=== PATIENT | male | born 1945 | race Caucasian/White ===

== ENCOUNTER 2020-01-21 12:33 | Emergency (ER) | payer MEDICARE, BC ==
[~2020-01-21] VITALS: Ht 182.9 cm; Wt 108.0 kg
[2020-01-21 12:36] VITALS: BP 132/74
[2020-01-21] MEDS ORDERED: ALBU8.5H8 INH (13:03)
[2020-01-21] MEDS ORDERED: AZIT250T29 PO (13:03)
== END 2020-01-21 13:43 | disposition home or self-care (01) ==
LOC: ER 12:33
DX: J20.9 Acute bronchitis, unspecified (principal); Z86.718 Personal history of other venous thrombosis and embolism; Z98.890 Other specified postprocedural states; Z88.6 Allergy status to analgesic agent; Z88.8 Allergy status to other drugs, medicaments and biological substances
CPT/HCPCS: 99284

== ENCOUNTER 2021-11-06 15:03 | Emergency (ER) | payer MEDICARE, BC ==
[~2021-11-06] VITALS: Ht 182.9 cm; Wt 85.6 kg
[~2021-11-06 15:03] MED LIST: ALBU8.5H17 INH
--- NOTE | 2021-11-06 15:20 | NUR ---
PATIENT EVALUATED BY PA IN TRIAGE.
--- NOTE | 2021-11-06 15:28 | NUR ---
PATIENT IS WELL ORIENTED, NO DISTRESS. TAKEN BY datapine FOR CT.
[2021-11-06 15:52] LABS: BASOPHILS % (AUTO) 0.6 % (0-1); EOSINOPHILS # (AUTO) 0.2 X10'3 (0-0.9); EOSINOPHILS % (AUTO) 2.8 % (0-6); HEMATOCRIT 39.7 % (42.0-52.0); HEMOGLOBIN 13.2 g/dl (14.0-17.9); LYMPHOCYTES # (AUTO) 1.7 X10'3 (1.1-4.8); LYMPHOCYTES % (AUTO) 21.9 % (21-51); MEAN CORPUSCULAR HEMOGLOBIN 30.7 PG (27.0-31.0); MEAN CORPUSCULAR HGB CONC 33.2 g/dL (33.0-36.5); MEAN CORPUSCULAR VOLUME 92.4 FL (78-98); MEAN PLATELET VOLUME 7.8 FL (7.4-10.4); MONOCYTES # (AUTO) 0.7 X10'3 (0-0.9); MONOCYTES % (AUTO) 8.8 % (2-12); NEUTROPHILS # (AUTO) 5.1 X10'3 (1.8-7.7); NEUTROPHILS % (AUTO) 65.9 % (42-75); PLATELET COUNT 231 X10'3 (140-440); RED CELL DISTRIBUTION WIDTH 15.2 % (11.5-14.5); WHITE BLOOD COUNT 7.8 X10'3 (4.5-11.0)
[2021-11-06 15:57] LABS: APTT 30 SECONDS (22-32)
[2021-11-06 15:58] LABS: ALANINE AMINOTRANSFERASE 21 U/L (12-78); ALBUMIN 4.1 G/DL (3.4-5.0); ALBUMIN/GLOBULIN RATIO 1.3 (1.1-1.5); ALKALINE PHOSPHATASE 91 IU/L (46-116); ANION GAP 8 (8-16); ASPARTATE AMINO TRANSFERASE 20 U/L (10-37); BILIRUBIN,TOTAL 0.6 MG/DL (0.1-1.0); BLOOD UREA NITROGEN 17 MG/DL (7-18); BUN/CREATININE RATIO 14.9 (5.4-32.0); CALCIUM 8.9 MG/DL (8.5-10.1); CHLORIDE 104 MMOL/L (99-107); CREATININE 1.14 MG/DL (0.60-1.10); GLUCOSE 103 MG/DL (70-104); POTASSIUM 4.5 MMOL/L (3.5-5.1); SODIUM 140 MMOL/L (135-145); TOTAL CARBON DIOXIDE 28.1 MMOL/L (24-32); TOTAL PROTEIN 7.2 G/DL (6.4-8.2); eGFR 63 ML/MIN
[2021-11-06] MEDS ORDERED: LIDOcaine 1% 30ml preserv. free vial IJ ONE (16:20)
[2021-11-06] MEDS ORDERED: TETanus/Pertussis (Acell)/Diphther VAC/PF (Tdap-Adult) 0.5ml syringe IMVAC ONE (17:05)
[2021-11-06] MEDS ORDERED: bacitracin 15gm ointment TP ONE (17:05)
[2021-11-06 17:40] VITALS: BP 147/67
== END 2021-11-06 17:43 | disposition home or self-care (01) ==
LOC: ER 15:04
DX: S06.0X0A Concussion without loss of consciousness, initial encounter (principal); S50.11XA Contusion of right forearm, initial encounter; S00.03XA Contusion of scalp, initial encounter; S00.81XA Abrasion of other part of head, initial encounter; Z86.718 Personal history of other venous thrombosis and embolism; Z98.890 Other specified postprocedural states; Z95.5 Presence of coronary angioplasty implant and graft; Z91.041 Radiographic dye allergy status; Z88.8 Allergy status to other drugs, medicaments and biological substances; Z79.899 Other long term (current) drug therapy; W22.8XXA Striking against or struck by other objects, initial encounter; Y93.89 Activity, other specified; Y92.89 Other specified places as the place of occurrence of the external cause; Y99.8 Other external cause status
CPT/HCPCS: 26770; 36415; 70450; 72125; 73130; 80053; 85025; 85610; 85730; 90471; 90715; 99284

== ENCOUNTER 2022-06-02 14:11 | Outpatient (CLI) | payer MEDICARE, BC | END 2022-06-02 23:59 | disposition home or self-care (01) | LOC: RAD 14:11 | PROVIDERS: ATTEND Specialist | DX: R13.14 Dysphagia, pharyngoesophageal phase (principal); R13.11 Dysphagia, oral phase; R49.0 Dysphonia; R47.1 Dysarthria and anarthria; K21.9 Gastro-esophageal reflux disease without esophagitis | CPT/HCPCS: 74230 ==

== ENCOUNTER 2024-06-26 13:00 | Emergency (ER) | payer MEDICARE, BC ==
[~2024-06-26] VITALS: Ht 182.9 cm; Wt 104.0 kg
[2024-06-26 14:14] VITALS: TEMP 97.8
[2024-06-26] MEDS: acetaminophen 325mg tablet PO ONE (15:07)
[2024-06-26] MEDS: cephalexin 500mg capsule PO ONE (15:07)
[2024-06-26] MEDS ORDERED: CEPH-585 PO (15:22)
[2024-06-26 15:46] VITALS: BP 145/98; PULSE 87; RESP 16; O2SAT 96
== END 2024-06-26 15:47 | disposition home or self-care (01) ==
LOC: ER 13:00
DX: S02.2XXA Fracture of nasal bones, initial encounter for closed fracture (principal); S00.81XA Abrasion of other part of head, initial encounter; S00.31XA Abrasion of nose, initial encounter; Z88.8 Allergy status to other drugs, medicaments and biological substances; Z91.018 Allergy to other foods; Z79.2 Long term (current) use of antibiotics; Z86.718 Personal history of other venous thrombosis and embolism; Z98.890 Other specified postprocedural states; W01.0XXA Fall on same level from slipping, tripping and stumbling without subsequent striking against object, initial encounter; Y93.89 Activity, other specified; Y92.89 Other specified places as the place of occurrence of the external cause; Y99.8 Other external cause status
CPT/HCPCS: 70450; 70486; 72125; 99284; A6402; J7030; A6449